=== PATIENT | female | born 1990 | race Caucasian/White ===

== ENCOUNTER 2020-11-17 12:28 | Inpatient (IN) | payer OTHER ==
[~2020-11-17] VITALS: Ht 167.6 cm; Wt 112.0 kg
[~2020-11-17 12:28] MED LIST: PAIN RELIEVER500 M4 PO; PRENATAL ONE T1 EACH PO
== END 2020-11-19 12:57 | disposition home or self-care (01) | DRG 807 ==
LOC: OB/GYN 12:28 → LDR 12:28 → OB/GYN 20:43 → LDR 21:38 → OB/GYN 21:39
PROVIDERS: ADMIT Obstetrics & Gynecology; ATTEND Obstetrics & Gynecology
PROC: 10E0XZZ Delivery of Products of Conception, External Approach (ICD-10-PCS; principal; 2020-11-17)
PROC: 4A1HXFZ Monitoring of Products of Conception, Cardiac Rhythm, External Approach (ICD-10-PCS; 2020-11-17)
DX: O80 Encounter for full-term uncomplicated delivery (principal); Z37.0 Single live birth; Z3A.38 38 weeks gestation of pregnancy; Z20.822 Contact with and (suspected) exposure to COVID-19